=== PATIENT | male | born 1960 | race African-American/Black ===

== ENCOUNTER 2017-06-03 06:48 | Emergency (ER) | payer MEDICAID ==
[~2017-06-03] VITALS: Ht 188 cm; Wt 95.0 kg
[2017-06-03 08:01] VITALS: BP 134/92
== END 2017-06-03 08:10 | disposition home or self-care (01) ==
LOC: ER 06:48
DX: R53.1 Weakness (principal); F31.9 Bipolar disorder, unspecified; F41.9 Anxiety disorder, unspecified; E78.00 Pure hypercholesterolemia, unspecified; N40.0 Benign prostatic hyperplasia without lower urinary tract symptoms
CPT/HCPCS: 99281

== ENCOUNTER 2017-08-23 10:28 | Emergency (ER) | payer MEDICAID ==
[~2017-08-23] VITALS: Ht 182.9 cm; Wt 85.0 kg
[2017-08-23 11:35] LABS: BASOPHILS % 0.4 % (0.0-2.0); EOSINOPHILS % 0.2 % (0.0-5.0); HEMATOCRIT. 46.9 % (42.0-52.0); HEMOGLOBIN. 15.3 g/dL (14.0-18.0); LYMPHOCYTES % 18.2 % (20.0-50.0); MEAN CORPUSCULAR HEMOGLOBIN 28.6 pg (28.0-32.0); MEAN CORPUSCULAR VOLUME 88.1 fL (80.0-94.0); MEAN PLATELET VOLUME 8.4 fl (7.4-10.4); MONOCYTES % 10.4 % (2.0-8.0); NEUTROPHILS % 70.8 % (40.0-76.0); PLATELET 318 x1000/uL (130-400); RED BLOOD CELL COUNT 5.33 mill/uL (4.7-6.1); RED CELL DISTRIBUTION WIDTH 14.5 % (11.6-14.6)
[2017-08-23 11:37] LABS: CHLORIDE 109 mEq/L (98-107)
[2017-08-23 11:48] LABS: CLARITY URINE CLEAR (CLEAR); COLOR URINE YELLOW (YELLOW); KETONES URINE 2+ (NEGATIVE); LEUKOCYTE ESTERASE URINE NEGATIVE (NEGATIVE); NITRITE URINE NEGATIVE (NEGATIVE); OCCULT BLOOD URINE NEGATIVE (NEGATIVE); PROTEIN URINE NEGATIVE (NEGATIVE); SPECIFIC GRAVITY URINE 1.031 (1.005-1.030)
[2017-08-23 11:53] LABS: CARBON DIOXIDE 20 mEq/L (21-32); ETHANOL BLOOD < 10 mg/dL
[2017-08-23 12:27] LABS: *AMPHETAMINES SCREEN URINE NEGATIVE (NEGATIVE); *BARBITURATES SCREEN URINE NEGATIVE (NEGATIVE); *BENZODIAZEPINES SCREEN URINE NEGATIVE (NEGATIVE); *COCAINE SCREEN URINE NEGATIVE (NEGATIVE); CANNABINOID URINE SCREEN NEGATIVE (NEGATIVE); METHADONE URINE SCREEN NEGATIVE (NEGATIVE); OPIATES URINE SCREEN NEGATIVE (NEGATIVE); PHENCYCLIDINE URINE SCREEN NEGATIVE (NEGATIVE)
[2017-08-23 12:50] VITALS: BP 169/101
== END 2017-08-23 12:50 | disposition home or self-care (01) ==
LOC: ER 10:35
DX: R53.1 Weakness (principal); R03.0 Elevated blood-pressure reading, without diagnosis of hypertension
CPT/HCPCS: 36415; 51702; 80053; 80305; 81003; 85025; 93005; 99285; G0482; Z7610; A4315

== ENCOUNTER 2022-11-30 00:57 | Emergency (ER) | payer MEDICAID, OTHER ==
[~2022-11-30] VITALS: Ht 177.8 cm; Wt 82.0 kg
[2022-11-30 01:46] VITALS: BP 167/86
[2022-11-30 08:11] LABS: CHLORIDE 108 mEq/L (98-107)
[2022-11-30 08:12] LABS: BASOPHILS % 0.4 % (0.0-2.0); EOSINOPHILS % 0.8 % (0.0-5.0); HEMATOCRIT. 39.9 % (42.0-52.0); HEMOGLOBIN. 13.1 g/dL (14.0-18.0); LYMPHOCYTES % 29.4 % (20.0-50.0); MEAN CORPUSCULAR HEMOGLOBIN 27.2 pg (28.0-32.0); MEAN CORPUSCULAR VOLUME 83.1 fL (80.0-94.0); MEAN PLATELET VOLUME 8.3 fl (7.4-10.4); MONOCYTES % 14.2 % (2.0-8.0); NEUTROPHILS % 55.2 % (40.0-76.0); PLATELET 379 x1000/uL (130-400); RED CELL DISTRIBUTION WIDTH 16.4 % (11.6-14.6)
== END 2022-11-30 12:05 | disposition left against medical advice (07) ==
LOC: ER 00:57
DX: R07.89 Other chest pain (principal); I10 Essential (primary) hypertension; Z53.21 Procedure and treatment not carried out due to patient leaving prior to being seen by health care provider; Z98.890 Other specified postprocedural states
CPT/HCPCS: 36415; 71045; 80053; 83880; 84484; 85025; 93005; 99285

== ENCOUNTER 2022-12-01 03:53 | Emergency (ER) | payer MEDICAID ==
[2022-12-02] MEDS ORDERED: AMLO5TAB88 MT (13:29)
== END 2022-12-01 05:00 | disposition left against medical advice (07) ==
LOC: ER 03:53
DX: Z53.21 Procedure and treatment not carried out due to patient leaving prior to being seen by health care provider (principal)

== ENCOUNTER 2022-12-02 13:00 | Emergency (ER) | payer MEDICAID ==
[~2022-12-02] VITALS: Ht 177.8 cm; Wt 82.0 kg
[2022-12-02 13:06] VITALS: BP 180/102
[2022-12-02] MEDS ORDERED: AMLO5TAB88 MT (13:29)
== END 2022-12-02 14:33 | disposition home or self-care (01) ==
LOC: ER 13:00
DX: I10 Essential (primary) hypertension (principal); Z85.46 Personal history of malignant neoplasm of prostate; Z91.14 Patient's other noncompliance with medication regimen
CPT/HCPCS: 99283

== ENCOUNTER 2023-06-26 16:35 | Emergency (ER) | payer MEDICAID, OTHER ==
[~2023-06-26] VITALS: Ht 182.9 cm; Wt 91.0 kg
[~2023-06-26 16:35] MED LIST: AMLO5TAB88 MT
[2023-06-26 16:49] VITALS: O2SAT 100
[2023-06-26] MEDS ORDERED: AMLO5TAB4 MT (20:49)
[2023-06-26 21:25] VITALS: BP 131/84; PULSE 71; RESP 20; TEMP 98
== END 2023-06-26 21:26 | disposition home or self-care (01) ==
LOC: ER 16:35
DX: I10 Essential (primary) hypertension (principal); Z76.0 Encounter for issue of repeat prescription
CPT/HCPCS: 99281

== ENCOUNTER 2023-09-24 18:51 | Emergency (ER) | payer MEDICAID, OTHER ==
[~2023-09-24] VITALS: Ht 188 cm; Wt 90.7 kg
[~2023-09-24 18:51] MED LIST changes: +AMLO5TAB4 MT
[2023-09-24 19:24] VITALS: BP 159/92; PULSE 92; RESP 16; TEMP 98.1; O2SAT 100
[2023-09-24] MEDS ORDERED: AMLO5TAB88 MT (21:32)
== END 2023-09-24 21:56 | disposition home or self-care (01) ==
LOC: ER 18:51
DX: I10 Essential (primary) hypertension (principal); Z85.9 Personal history of malignant neoplasm, unspecified
CPT/HCPCS: 99281; 99283

== ENCOUNTER 2023-12-27 22:41 | Emergency (ER) | payer MEDICAID ==
[~2023-12-27] VITALS: Ht 188 cm; Wt 77.0 kg
[2023-12-27 22:42] VITALS: BP 178/80; PULSE 98; RESP 16; O2SAT 98
== END 2023-12-27 23:07 | disposition left against medical advice (07) ==
LOC: ER 22:41
DX: I10 Essential (primary) hypertension (principal); F19.90 Other psychoactive substance use, unspecified, uncomplicated; Z85.9 Personal history of malignant neoplasm, unspecified
CPT/HCPCS: 82962; 99283

== ENCOUNTER 2025-03-09 00:49 | Emergency (ER) | payer MEDICAID ==
[~2025-03-09] VITALS: Ht 182.9 cm; Wt 91.0 kg
[~2025-03-09 00:49] MED LIST changes: -AMLO5TAB4 MT; +AMLO5TAB5 MT
[2025-03-09 01:37] VITALS: O2SAT 100
[2025-03-09 05:28] VITALS: TEMP 36.7
[2025-03-09] MEDS ORDERED: ASPIRIN 325MG TABLET PO ONE (06:00)
[2025-03-09 06:15] LABS: HEMATOCRIT. 33.7 % (42.0-52.0); HEMOGLOBIN. 10.9 g/dL (14.0-18.0); MEAN CORPUSCULAR HEMOGLOBIN 26.1 pg (28.0-32.0); MEAN CORPUSCULAR HGB CONC 32.3 g/dL (31.0-37.0); MEAN CORPUSCULAR VOLUME 80.5 fL (80.0-94.0); MEAN PLATELET VOLUME 8.1 fl (7.4-10.4); PLATELET 320 x1000/uL (130-400); RED BLOOD CELL COUNT 4.18 mill/uL (4.7-6.1); RED CELL DISTRIBUTION WIDTH 21.2 % (11.6-14.6); WHITE BLOOD COUNT 4.7 x1000/uL (4.5-11.0)
[2025-03-09 06:19] LABS: DIFFERENTIAL COMMENT 1
[2025-03-09 06:25] LABS: CHLORIDE 109 mEq/L (98-107); POTASSIUM 3.8 mEq/L (3.5-5.1); SODIUM 142 mEq/L (136-145)
[2025-03-09 06:26] LABS: CARBON DIOXIDE 23 mEq/L (21-32)
[2025-03-09 06:27] LABS: CALCIUM 9.3 mg/dL (8.7-10.4)
[2025-03-09 06:31] LABS: CREATININE 1.2 mg/dL (0.6-1.3); GLUCOSE 78 mg/dL (70-105); UREA NITROGEN BLOOD 16 mg/dL (9-23)
[2025-03-09 06:39] LABS: TROPONIN I HIGH SENSITIVITY < 4 ng/L (3.0-53)
[2025-03-09 07:00] VITALS: BP 129/69; PULSE 55; RESP 15; O2SAT 100
[2025-03-09] MEDS ORDERED: IBUP-2029 MT (07:13)
[2025-03-09 07:27] LABS: ANISOCYTOSIS 2+; MICROCYTOSIS 1+; PLATELET ESTIMATE NORMAL
== END 2025-03-09 08:00 | disposition home or self-care (01) ==
LOC: ER 01:12 → CANBEDREQ 07:46 → ER 08:00
DX: R07.89 Other chest pain (principal); M54.50 Low back pain, unspecified; Z79.899 Other long term (current) drug therapy
CPT/HCPCS: 36415; 71045; 80048; 84484; 85025; 93005; 99285